=== PATIENT | female | born 1995 | race Caucasian/White ===

== ENCOUNTER → 2022-11-29 | Emergency (ER) | payer MEDICAID ==
[~2022-11-29] VITALS: Ht 170.2 cm; Wt 72.6 kg
[2022-11-29 16:54] VITALS: BP_SYST 136; PULSE 90; RESP 18; TEMP 97.8; O2SAT 99
== END | disposition left against medical advice (07) ==
LOC: SED 16:46
DX: R10.2 Pelvic and perineal pain (principal); Z53.21 Procedure and treatment not carried out due to patient leaving prior to being seen by health care provider
CPT/HCPCS: 99281